=== PATIENT | female | born 1935 | race Caucasian/White ===

== ENCOUNTER 2017-08-14 13:49 | Emergency (ER) | payer MEDICARE, OTHER ==
[2013-05-04 16:01] VITALS: BMI 30.6
[~2017-08-14 13:49] MED LIST: AMLOD PO; BAYER CHEWABLE81 MG PO; BENICAR HCT 40-1 TAB PO; CADUET 5 MG/101 TAB PO; EFFIENT10 MG PO; EYE DROP; PLAVIX75 MG PO; PREVACID30 MG PO; VICTOZA0.6 MG/0.1 SQ; XALATAN 0.0052.5 ML EACH EYE; ZOCOR20 MG PO; [UNRECOGNIZED DRUG - OTHER] PO
== END 2017-08-14 17:41 | disposition home or self-care (01) ==
LOC: D.ER 13:49
DX: J11.1 Influenza due to unidentified influenza virus with other respiratory manifestations (principal); B02.29 Other postherpetic nervous system involvement; M25.512 Pain in left shoulder; M54.2 Cervicalgia; R51 Headache; R22.32 Localized swelling, mass and lump, left upper limb